=== PATIENT | female | born 1985 | race Caucasian/White ===

== ENCOUNTER 2021-05-21 22:08 | Inpatient (IN) | payer OTHER ==
[~2021-05-21] VITALS: Ht 157.5 cm; Wt 60.8 kg
[2021-05-21] MEDS ORDERED: ASPIRIN 81 MG TAB.CHEW PO ONE ×2 (22:30→23:30)
[2021-05-21] MEDS ORDERED: LIDOCAINE VISCUS 2% 15 ML UDC MM ONE (22:45)
[2021-05-21] MEDS ORDERED: MAG HYDROX/AL HYDROX/SIMETH 30 ML LIQUID UDC PO ONE (22:45)
[2021-05-21] MEDS ORDERED: MAG HYDROX/AL HYDROX/SIMETH 30 ML LIQUID UDC ONE (22:51)
[2021-05-21] MEDS ORDERED: LIDOCAINE VISCUS 2% 15 ML UDC ONE (22:51)
[2021-05-21 22:57] LABS: HEMATOCRIT 41.3 % (31.2-41.9); MEAN CORPUSCULAR HEMOGLOBIN 31.5 uug (24.7-32.8); MEAN CORPUSCULAR VOLUME 94.3 fL (75.5-95.3); PLATELET COUNT (AUTO) 284 K/uL (179-408)
[2021-05-21 23:02] LABS: CREATININE 1.1 mg/dL (0.6-1.3); POTASSIUM 3.5 mmol/L (3.5-5.1)
[2021-05-21 23:08] LABS: BILIRUBIN,TOTAL 0.3 mg/dL (0.2-1.0); TOTAL PROTEIN, SERUM 7.5 g/dL (6.4-8.2)
--- NOTE | 2021-05-21 23:21 | NUR ---
Rome Tom from lab called for critical lab value, Troponin 0.161, Dr. Ramirez notified.
[2021-05-21] MEDS ORDERED: NITROGLYCERIN 0.4 MG/TAB BOTTLE SL PRN (23:30)
[2021-05-21] MEDS ORDERED: NITROGLYCERIN 0.4 MG/TAB BOTTLE SL ONE (23:32)
[2021-05-21] MEDS ORDERED: ASPIRIN 81 MG TAB.CHEW ONE (23:32)
--- NOTE | 2021-05-21 23:40 | NUR ---
CALLED ZIPPER SEWING MACHINE OPERATOR, DR. WOO PAGED AND SPOKE WITH DR. BELLAMY.
[2021-05-22] MEDS ORDERED: LITHIUM CARBONATE 300 MG CAPSULE PO SCH ×2 (01:00→21:00)
[2021-05-22] MEDS ORDERED: DULOXETINE 30 MG CAPSULE.DR PO SCH ×2 (01:00→21:00)
--- NOTE | 2021-05-22 01:25 | NUR ---
Dr. Lundberg on panel call with Dr. Sepulveda. Patient accepted for admission to [facility], diagnosis: chestpain.
[2021-05-22] MEDS ORDERED: DULOXETINE 60 MG CAPSULE.DR PO ONE (01:36)
[2021-05-22] MEDS ORDERED: LITHIUM CARBONATE 300 MG CAPSULE ONE (01:37)
[2021-05-22] MEDS ORDERED: ONDANSETRON 4 MG/2 ML VIAL IV PRN (01:45)
[2021-05-22] MEDS ORDERED: Z GUARD REMEDY PASTE 57 GM TUBE TOP PRN (01:45)
[2021-05-22] MEDS ORDERED: ACETAMINOPHEN 325 MG TABLET PO PRN (01:45)
[2021-05-22] MEDS ORDERED: MAGNESIUM HYDROXIDE 30 ML LIQUID UDC PO PRN (01:45)
[2021-05-22] MEDS ORDERED: MORPHINE SULFATE 2 MG/1 ML DISP.SYRIN IV PRN ×2 (01:45→09:00)
--- NOTE | 2021-05-22 02:00 | NUR ---
mold tooling technician Rome Tom called for critical lab value, Troponin 0.471, Dr. Ramirez notified.
--- NOTE | 2021-05-22 02:10 | NUR ---
PAGED MILLWRIGHT INSTRUCTOR, DR. WOO AGAIN AND SPEAKING WITH ER DR. BELLAMY.
[2021-05-22] MEDS ORDERED: HEPARIN/D5W DRIP 500 ML IV PRN (02:15)
[2021-05-22] MEDS ORDERED: HEPARIN SODIUM,PORCINE 5,000 UNITS/ML VIAL IV ONE (02:15)
--- NOTE | 2021-05-22 02:30 | NUR ---
Pt out of ER for CT.
[2021-05-22] MEDS ORDERED: IOHEXOL 350 100 ML INFUS..BTL ONE (02:33)
[2021-05-22] MEDS ORDERED: IV NORMAL SALINE 250 ML IV ONE (02:33)
[2021-05-22] MEDS ORDERED: SWABABLE VALVE TRANSFER SET EA MC ONE (02:33)
--- NOTE | 2021-05-22 02:55 | NUR ---
Pt back to ER from CT.
[2021-05-22] MEDS ORDERED: ENOXAPARIN SODIUM 60 MG/0.6 ML DISP.SYRIN SQ ONE (03:29)
--- NOTE | 2021-05-22 04:55 | NUR ---
Ultrasound at bedside.
[2021-05-22] MEDS ORDERED: PANTOPRAZOLE SODIUM 40 MG TABLET.DR PO SCH (07:00)
--- NOTE | 2021-05-22 07:10 | NUR ---
Recieved pt in bed, sitting up, no c/o pain, N/V. continue close monitoring.
[2021-05-22] MEDS ORDERED: IV NORMAL SALINE 500 ML BAG IV ONE (08:15)
[2021-05-22] MEDS ORDERED: PANTOPRAZOLE SODIUM 40 MG TABLET.DR PO ONE (08:19)
[2021-05-22] MEDS ORDERED: ASPIRIN EC 81 MG TABLET.DR PO SCH (09:00)
--- NOTE | 2021-05-22 09:11 | NUR ---
Dr Bishop(plate roller) at the bedside for eval.
--- NOTE | 2021-05-22 09:20 | NUR ---
[facility] per Dr Valentine for cardiac CTA test. Awaiting call back. Pt is resting in bed, no c/o pain.
[2021-05-22] MEDS ORDERED: ASPIRIN 81 MG TAB.CHEW ONE (09:23)
--- NOTE | 2021-05-22 09:26 | NUR ---
Placed a call to [facility], stating no contact w/ hospital and pt's insurance not covering tx.
[2021-05-22] MEDS ORDERED: METOPROLOL SUCCINATE XL 25 MG TAB.SR.24H PO SCH (09:30)
--- NOTE | 2021-05-22 09:30 | NUR ---
Called [facility] transfer, decline transfer due to not having ACLS/ALS transfer staff today.
--- NOTE | 2021-05-22 09:37 | NUR ---
Place a call to [facility], declined tx due to payment/insurance reasons.
[2021-05-22] MEDS ORDERED: METOPROLOL SUCCINATE XL 25 MG TAB.SR.24H PO ONE (10:23)
--- NOTE | 2021-05-22 10:34 | NUR ---
SAROJ CALLED AND SAID THAT THE PT NEEDS TO BE AT [facility] BEFORE 1400, BECAUSE AFTER THAT, THERE IS NO NURSE TO DO THE CARDIAC CTA.
--- NOTE | 2021-05-22 10:45 | NUR ---
Sharonda, mattress spring encaser able to arrange transfer for pt, ETA 1200. Pt made aware and agreed. Pt sign consent for cardiac CTA, placed in the chart.
--- NOTE | 2021-05-22 11:03 | NUR ---
Notified Cordell, in radiology at [facility] for ETA.
[2021-05-22] MEDS ORDERED: NITROGLYCERIN 0.4 MG/TAB BOTTLE SL PRN (11:59)
--- NOTE | 2021-05-22 12:16 | NUR ---
Spoke to Sharonda, telephonic nurse case manager. Per Sharonda, unable to get transprtation for pt, due to insurace declining auth. DR Valentine notified.
--- NOTE | 2021-05-22 12:30 | NUR ---
Placed pt on NPO, for HIDA scan.
--- NOTE | 2021-05-22 14:00 | NUR ---
Pt signed consent for HIDA scan, placed in the chart.
[2021-05-22 14:51] VITALS: BP 103/61
[2021-05-22 20:12] VITALS: BP 111/68
[2021-05-22] MEDS ORDERED: DULOXETINE 60 MG CAPSULE.DR PO SCH (21:00)
--- NOTE | 2021-05-22 21:39 | NUR ---
dc orders received noted and carried out,dc pt to [facility] via ambulances in stable condition.pt left the facility via ambulances in stable condition
[2021-05-23] MEDS ORDERED: LITHIUM CARBONATE 300 MG CAPSULE PO SCH (09:00)
== END 2021-05-22 21:45 | disposition short-term general hospital (02) | DRG 281 ==
LOC: ER 22:14 → OBSER 05-22 08:06 → TRANSITION 05-22 08:46 → TELE3 05-22 14:07
PROVIDERS: ADMIT Internal Medicine; ATTEND Internal Medicine
DX: I21.A1 Myocardial infarction type 2 (principal); K81.0 Acute cholecystitis; F31.9 Bipolar disorder, unspecified; F42.9 Obsessive-compulsive disorder, unspecified; Z20.822 Contact with and (suspected) exposure to COVID-19; R11.2 Nausea with vomiting, unspecified; K22.4 Dyskinesia of esophagus; K44.9 Diaphragmatic hernia without obstruction or gangrene; I25.10 Atherosclerotic heart disease of native coronary artery without angina pectoris
CPT/HCPCS: 36415; 70030-TC; 70450; 71045; 71275; 76700; 78445; 83690; 85025; 85730; 93005; 93307; A4663; A9537; G0378; J1650; J7050; Q9967